=== PATIENT | male | born 1945 | race African-American/Black ===

== ENCOUNTER 2017-09-26 06:49 | Observation (INO) ==
--- NOTE | 2017-09-26 07:08 | Emergency Department Note ---
Disposition Clinical Impression: Syncope and collapse Disposition: Admitted As Inpatient Condition: Fair Referrals: Markell Stoddard MD [Primary Care Provider] - Forms: ED Satisfaction Letter Time of Disposition: 09:36 Syncope HPI - General Chief Complaint: ED Syncope Stated Complaint: near syncope/palpitations Time Seen by Provider: 09/26/17 06:49 Source: patient, EMS Mode of arrival: EMS Limitations: no limitations Nursing Notes Reviewed: Yes Vital Signs Reviewed: Yes - History of Present Illness HPI Narrative: Alert and oriented nontoxic-appearing 71-year-old male presents for evaluation of a syncopal episode just prior to arrival. The patient's significant other states that as he was getting out of bed this morning, his "eyes rolled back in the back of his head and he started to go down". The patient's significant other states that she was standing close enough that she was able to grab him and assist him back to bed. The patient did not actually fall to the ground. The patient does state that prior to this episode, he was experiencing a sensation of his heart racing. He also complains of increasing generalized weakness over the course of the past several days as well as epigastric/right upper quadrant abdominal pain that radiates into his back. The patient's significant other states that he has complained of abdominal pain for the past several days. He denies any aggravating or alleviating factors to this abdominal pain. He denies any associated chest pain, shortness of breath, fever , nausea, vomiting, diarrhea, or constipation. He denies any visual disturbances. He denies any cough, sputum production, or hemoptysis. Pt Subjective Complaint: loss of consciousness Onset (ago): Just STEAM HAND Prodromal Symptoms: heart racing Witnessed: yes - by bystander Context: getting out of bed, standing up Injuries Sustained Associated with Event: none Current Symptoms: none Associated trauma secondary to event: No - Related Data Home Medications Medication Instructions Recorded Confirmed Aspirin 81 mg PO DAILY 01/29/16 05/06/17 Atorvastatin Calcium [Lipitor] 80 mg PO HS 01/29/16 05/06/17 Losartan/HCTZ [Hyzaar 50-12.5 1 tab PO DAILY 01/29/16 05/06/17 Tablet] Omeprazole [PriLOSEC] 20 mg PO DAILY 01/29/16 05/06/17 Sucralfate [Carafate] 1 gm PO TID 01/29/16 05/06/17 diazePAM [Valium] 10 mg PO BID PRN 01/29/16 05/06/17 Donepezil [Aricept] 10 mg PO HS 05/06/17 05/06/17 Tamsulosin [Flomax] 0.4 mg PO DAILY 05/06/17 05/06/17 Allergies Allergy/AdvReac Type Severity Reaction Status Date / Time codeine AdvReac Nausea Verified 09/26/17 09:33 Oxycodone [From Percocet] AdvReac Nausea Verified 09/26/17 09:33 propoxyphene AdvReac Nausea Verified 09/26/17 09:33 [From Darvocet-N] All systems ED: reviewed and negative except as stated. Constitutional: Denies: fever, chills, weakness, weight change Eyes: Denies: eye pain, eye discharge, vision change ENT ED: Denies: ear pain, throat pain, dental pain, hearing loss, epistaxis, congestion, dysphagia Cardiovascular: Reports: as per HPI, syncope. Denies: chest pain, palpitations , dyspnea on exertion, edema Respiratory: Denies: cough, dyspnea, wheezes, hemoptysis, stridor Gastrointestinal: Reports: as per HPI, abdominal pain. Denies: nausea, vomiting , diarrhea, constipation, hematemesis, melena, hematochezia Genitourinary: Denies: urgency, dysuria, frequency, hematuria Musculoskeletal: Denies: back pain, neck pain, arthralgia, myalgia Integumentary: Denies: rash, abrasion, lesions Neurological: Denies: headache, weakness, numbness, paresthesias, confusion, abnormal gait, vertigo Psychiatric: Denies: anxiety, depression, suicidal thoughts, homicidal thoughts , auditory hallucinations, visual hallucinations Endocrine: Denies: fatigue Hematological/Lymphatic: Denies: easy bleeding, easy bruising Allergic/Immunologic: Denies: facial swelling, urticaria Past Medical History - Past Medical History Attestation: Yes The following information was validated with the patient. Source: patient, nursing notes reviewed Medical history: Reports: cancer, CVA, GERD, hyperlipidemia, hypertension, myocardial infarction, other Surgical history: Reports: cholecystectomy Psychiatric history: Reports: anxiety, depression - Social History Smoking Status: Former smoker Smokeless Tobacco Status: No Alcohol use: Reports: none Drug use: Reports: none Physical Exam - General Limitations: no limitations General appearance: alert, in no apparent distress - Head Head exam: atraumatic, normocephalic, normal inspection - Eye Eye exam: Present: normal appearance, PERRL, EOMI. Absent: nystagmus - ENT ENT exam: mucous membranes moist - Neck Neck exam: Present: normal inspection, full ROM, trachea midline - Respiratory Respiratory exam: Present: normal lung sounds bilaterally. Absent: respiratory distress, wheezes, stridor, accessory muscle use, prolonged expiratory phase - Cardiovascular Cardiovascular exam: Present: regular rate, normal rhythm, normal heart sounds - Abdominal Exam Abdominal exam: Present: soft, tenderness, normal bowel sounds. Absent: distention, guarding, rebound, rigidity, tenderness at McBurney's Point, mass, bruit, pulsatile mass Abdominal tenderness: Present: RUQ, epigastrium, moderate - Extremities Exam Extremities exam: Present: normal inspection, full ROM. Absent: tenderness, pedal edema - Neurological Exam Neurological exam: Present: alert, oriented X3 - Psychiatric Psychiatric exam: Present: normal affect, normal mood - Skin Skin exam: Present: warm, dry, intact, normal color. Absent: rash Course Course Narrative: 929: I spoke with Dr. Koehler of the hospitalist service who has accepted the patient for admission under her care. I have discussed this plan with Dr. Perez as well. He has had a [id number] evaluation with patient and agrees with the outlined plan. Vital Signs Temperature 98.1 F 09/26/17 06:49 Pulse Rate 61 09/26/17 06:49 Respiratory Rate 18 09/26/17 06:49 Blood Pressure 112/67 09/26/17 06:49 O2 Sat by Pulse Oximetry 96 09/26/17 06:49 Temperature 98.1 F 09/26/17 06:49 Pulse Rate 61 09/26/17 06:49 Respiratory Rate 18 09/26/17 06:49 Blood Pressure 112/67 09/26/17 06:49 O2 Sat by Pulse Oximetry 96 09/26/17 06:49 Oxygen Delivery Oxygen Delivery Room Air Syncope - Medical Records Medical records reviewed: Yes I reviewed the patient's medical records. - Lab Data Lab results reviewed: Yes I reviewed the patient's lab results. Lab results narrative: Laboratory Last Values WBC 4.2 K/mcL (4.3-11.1) L 09/26/17 07:03 RBC 4.62 M/mcL (4.19-5.50) 09/26/17 07:03 Hgb 13.8 g/dL (12.9-16.9) 09/26/17 07:03 Hct 40.9 % (37.5-50.1) 09/26/17 07:03 MCV 88.5 fL (83.0-100.0) 09/26/17 07:03 MCH 29.9 pg (28.0-33.3) 09/26/17 07:03 MCHC 33.7 g/dL (31.6-35.5) 09/26/17 07:03 RDW 13.3 % (11.5-14.5) 09/26/17 07:03 Plt Count 233 K/mcL (140-400) 09/26/17 07:03 MPV 9.2 fL (9.4-12.4) L 09/26/17 07:03 Immature Gran % 0.2 % (0-4) 09/26/17 07:03 Seg Neutrophils % 56.5 % 09/26/17 07:03 Lymphocytes % 32.4 % 09/26/17 07:03 Monocytes % 8.2 % 09/26/17 07:03 Eosinophils % 2.2 % 09/26/17 07:03 Basophils % 0.5 % 09/26/17 07:03 Neutrophils # 2.4 K/mcL (1.6-8.9) 09/26/17 07:03 Lymphocytes # 1.4 K/mcL (0.6-4.6) 09/26/17 07:03 Monocytes # 0.3 K/mcL (0.0-1.3) 09/26/17 07:03 Eosinophils # 0.1 K/mcL (0.0-0.6) 09/26/17 07:03 Basophils # 0.0 K/mcL (0.0-0.2) 09/26/17 07:03 PT 12.8 Seconds (9.4-12.1) H 09/26/17 07:03 INR 1.2 09/26/17 07:03 APTT 27.2 Seconds (26.0-36.0) 09/26/17 07:03 Sodium 135 mEq/L (136-145) L 09/26/17 07:03 Potassium 3.7 mEq/L (3.5-5.1) 09/26/17 07:03 Chloride 99 mEq/L (98-107) 09/26/17 07:03 Carbon Dioxide 30 mEq/L (23-29) H 09/26/17 07:03 BUN 9 mg/dL (8-23) 09/26/17 07:03 Creatinine 0.94 mg/dL (0.70-1.30) 09/26/17 07:03 Est GFR ( Amer) > 60 (> 60) 09/26/17 07:03 Est GFR (Non-Af Amer) > 60 (> 60) 09/26/17 07:03 BUN/Creatinine Ratio 10 (6-26) 09/26/17 07:03 Glucose 143 mg/dL (70-105) H 09/26/17 07:03 Calculated Osmolality 281 (280-300) 09/26/17 07:03 Calcium 9.2 mg/dL (8.6-10.3) 09/26/17 07:03 Total Bilirubin 1.1 mg/dL (0.3-1.0) H 09/26/17 07:03 AST 21 Units/L (13-39) 09/26/17 07:03 ALT 15 Units/L (7-52) 09/26/17 07:03 Alkaline Phosphatase 54 Units/L (34-104) 09/26/17 07:03 Troponin I < 0.03 ng/mL (< 0.04) 09/26/17 07:03 Serum Total Protein 6.7 g/dL (6.4-8.9) 09/26/17 07:03 Albumin 3.8 g/dL (3.5-5.7) 09/26/17 07:03 Globulin 2.9 g/dL (2.4-3.5) 09/26/17 07:03 Albumin/Globulin Ratio 1.3 (1.1-2.2) 09/26/17 07:03 Amylase 90 Units/L (29-103) 09/26/17 07:03 Lipase 12 Units/L (11-82) 09/26/17 07:03 Urine Color Yellow (Yellow) 09/26/17 08:36 Urine Clarity Clear (Clear) 09/26/17 08:36 Urine pH 7.0 pH Units (5.0-8.0) 09/26/17 08:36 Ur Specific [place] > 1.030 (1.010-1.025) H 09/26/17 08:36 Urine Protein Negative mg/dL (Neg-Trace) 09/26/17 08:36 Urine Glucose (UA) Normal mg/dL (Normal) 09/26/17 08:36 Urine Ketones Negative mg/dL (Negative) 09/26/17 08:36 Urine Blood Negative (Negative) 09/26/17 08:36 Urine Nitrite Negative (Negative) 09/26/17 08:36 Urine Bilirubin Negative (Negative) 09/26/17 08:36 Urine Urobilinogen Normal mg/dL (Normal) 09/26/17 08:36 Ur Leukocyte Esterase Negative (Negative) 09/26/17 08:36 Ur Culture Indicated? NO (NO) 09/26/17 08:36 Result diagrams: 09/26/17 07:03 09/26/17 07:03 Lab Results 09/26/17 09/26/17 09/26/17 Range/Units 07:03 07:03 07:03 WBC 4.2 L (4.3-11.1) K/mcL RBC 4.62 (4.19-5.50) M/mcL Hgb 13.8 (12.9-16.9) g/dL Hct 40.9 (37.5-50.1) % MCV 88.5 (83.0-100.0) fL MCH 29.9 (28.0-33.3) pg MCHC 33.7 (31.6-35.5) g/dL RDW 13.3 (11.5-14.5) % Plt Count 233 (140-400) K/mcL MPV 9.2 L (9.4-12.4) fL Immature Gran % 0.2 (0-4) % Seg Neutrophils % 56.5 % Lymphocytes % 32.4 % Monocytes % 8.2 % Eosinophils % 2.2 % Basophils % 0.5 % Neutrophils # 2.4 (1.6-8.9) K/mcL Lymphocytes # 1.4 (0.6-4.6) K/mcL Monocytes # 0.3 (0.0-1.3) K/mcL Eosinophils # 0.1 (0.0-0.6) K/mcL Basophils # 0.0 (0.0-0.2) K/mcL PT 12.8 H (9.4-12.1) Seconds INR 1.2 APTT 27.2 (26.0-36.0) Seconds Sodium (136-145) mEq/L Potassium (3.5-5.1) mEq/L Chloride (98-107) mEq/L Carbon Dioxide (23-29) mEq/L BUN (8-23) mg/dL Creatinine (0.70-1.30) mg/dL Est GFR ( Amer) (> 60) Est GFR (Non-Af Amer) (> 60) BUN/Creatinine Ratio (6-26) Glucose (70-105) mg/dL Calculated Osmolality (280-300) Calcium (8.6-10.3) mg/dL Total Bilirubin (0.3-1.0) mg/dL AST (13-39) Units/L ALT (7-52) Units/L Alkaline Phosphatase (34-104) Units/L Troponin I < 0.03 (< 0.04) ng/mL Serum Total Protein (6.4-8.9) g/dL Albumin (3.5-5.7) g/dL Globulin (2.4-3.5) g/dL Albumin/Globulin Ratio (1.1-2.2) Amylase (29-103) Units/L Lipase (11-82) Units/L Urine Color (Yellow) Urine Clarity (Clear) Urine pH (5.0-8.0) pH Units Ur Specific [place] (1.010-1.025) Urine Protein (Neg-Trace) mg/dL Urine Glucose (UA) (Normal) mg/dL Urine Ketones (Negative) mg/dL Urine Blood (Negative) Urine Nitrite (Negative) Urine Bilirubin (Negative) Urine Urobilinogen (Normal) mg/dL Ur Leukocyte Esterase (Negative) Ur Culture Indicated? (NO) 09/26/17 09/26/17 Range/Units 07:03 08:36 WBC (4.3-11.1) K/mcL RBC (4.19-5.50) M/mcL Hgb (12.9-16.9) g/dL Hct (37.5-50.1) % MCV (83.0-100.0) fL MCH (28.0-33.3) pg MCHC (31.6-35.5) g/dL RDW (11.5-14.5) % Plt Count (140-400) K/mcL MPV (9.4-12.4) fL Immature Gran % (0-4) % Seg Neutrophils % % Lymphocytes % % Monocytes % % Eosinophils % % Basophils % % Neutrophils # (1.6-8.9) K/mcL Lymphocytes # (0.6-4.6) K/mcL Monocytes # (0.0-1.3) K/mcL Eosinophils # (0.0-0.6) K/mcL Basophils # (0.0-0.2) K/mcL PT (9.4-12.1) Seconds INR APTT (26.0-36.0) Seconds Sodium 135 L (136-145) mEq/L Potassium 3.7 (3.5-5.1) mEq/L Chloride 99 (98-107) mEq/L Carbon Dioxide 30 H (23-29) mEq/L BUN 9 (8-23) mg/dL Creatinine 0.94 (0.70-1.30) mg/dL Est GFR ( Amer) > 60 (> 60) Est GFR (Non-Af Amer) > 60 (> 60) BUN/Creatinine Ratio 10 (6-26) Glucose 143 H (70-105) mg/dL Calculated Osmolality 281 (280-300) Calcium 9.2 (8.6-10.3) mg/dL Total Bilirubin 1.1 H (0.3-1.0) mg/dL AST 21 (13-39) Units/L ALT 15 (7-52) Units/L Alkaline Phosphatase 54 (34-104) Units/L Troponin I (< 0.04) ng/mL Serum Total Protein 6.7 (6.4-8.9) g/dL Albumin 3.8 (3.5-5.7) g/dL Globulin 2.9 (2.4-3.5) g/dL Albumin/Globulin Ratio 1.3 (1.1-2.2) Amylase 90 (29-103) Units/L Lipase 12 (11-82) Units/L Urine Color Yellow (Yellow) Urine Clarity Clear (Clear) Urine pH 7.0 (5.0-8.0) pH Units Ur Specific [place] > 1.030 H (1.010-1.025) Urine Protein Negative (Neg-Trace) mg/dL Urine Glucose (UA) Normal (Normal) mg/dL Urine Ketones Negative (Negative) mg/dL Urine Blood Negative (Negative) Urine Nitrite Negative (Negative) Urine Bilirubin Negative (Negative) Urine Urobilinogen Normal (Normal) mg/dL Ur Leukocyte Esterase Negative (Negative) Ur Culture Indicated? NO (NO) - Radiology Data Radiology results reviewed: Yes I reviewed the patient's radiology results. Chest X-Ray 09/26/17 06:51 IMPRESSION: No radiographic evidence of acute postvoid process. Hyperinflated lungs suggestive of COPD. D/ / Ephraim Kruse MD / Ephraim Kruse MD Interpreting Provider: Ephraim Kruse MD Abdomen/Pelvis CTA 09/26/17 07:28 IMPRESSION: 1. Mild coronary and mild -moderate aortic atherosclerosis. No aortic aneurysm or dissection. 2. No acute pulmonary emboli. 3. 5 mm right upper lobe solid pulmonary nodules stable compared to the most recent exam and 02/11/2016 exam demonstrating over 1 year stability (see recommendations). 4. No acute pulmonary process. No acute abdominal/ pelvic process. . 5. Nonspecific mild proximal gastric wall thickening which could relate to nondistention versus possible gastritis. 6. Prostatomegaly. RECOMMENDATIONS: Fleischner Society guidelines for follow-up and management of incidentally detected pulmonary nodules: Single Solid Nodule: Nodule size less than 6 mm In a low-risk patient, no routine follow-up. In a high-risk patient, optional CT at 12 months. Nodule size equals 6-8 mm In a low-risk patient, CT at 6-12 months, then consider CT at 18-24 months. In a high-risk patient, CT at 6-12 months, then CT at 18-24 months. Nodule size greater than 8 mm In a low-risk patient, consider CT, PET/CT, or tissue sampling at 3 months. In a high-risk patient, consider CT, PET/CT, or tissue sampling at 3 months. Multiple Solid Nodules: Nodule size less than 6 mm In a low-risk patient, no routine follow-up. In a high-risk patient, optional CT at 12 months. Nodule size equals 6-8 mm In a low-risk patient, CT at 3-6 months, then consider CT at 18-24 months. In a high-risk patient, CT at 3-6 months, then CT at 18-24 months. Nodule size greater than 8 mm In a low-risk patient, CT at 3-6 months, then consider CT at 18-24 months. In a high-risk patient, CT at 3-6 months, then CT at 18-24 months. - Low risk patients include individuals with minimal or absent history of smoking and other known risk factors. - High risk patients include individuals with a history or smoking or known risk factors. Radiology 2017 http://pubs.rsna.org/doi/full/10.1148/radiol.[email or web address] D/ / Dillon Nam MD / Dillon Nam MD Interpreting Provider: Dillon Nam MD Chest CTA 09/26/17 07:28 IMPRESSION: 1. Mild coronary and mild -moderate aortic atherosclerosis. No aortic aneurysm or dissection. 2. No acute pulmonary emboli. 3. 5 mm right upper lobe solid pulmonary nodules stable compared to the most recent exam and 02/11/2016 exam demonstrating over 1 year stability (see recommendations). 4. No acute pulmonary process. No acute abdominal/ pelvic process. . 5. Nonspecific mild proximal gastric wall thickening which could relate to nondistention versus possible gastritis. 6. Prostatomegaly. RECOMMENDATIONS: Fleischner Society guidelines for follow-up and management of incidentally detected pulmonary nodules: Single Solid Nodule: Nodule size less than 6 mm In a low-risk patient, no routine follow-up. In a high-risk patient, optional CT at 12 months. Nodule size equals 6-8 mm In a low-risk patient, CT at 6-12 months, then consider CT at 18-24 months. In a high-risk patient, CT at 6-12 months, then CT at 18-24 months. Nodule size greater than 8 mm In a low-risk patient, consider CT, PET/CT, or tissue sampling at 3 months. In a high-risk patient, consider CT, PET/CT, or tissue sampling at 3 months. Multiple Solid Nodules: Nodule size less than 6 mm In a low-risk patient, no routine follow-up. In a high-risk patient, optional CT at 12 months. Nodule size equals 6-8 mm In a low-risk patient, CT at 3-6 months, then consider CT at 18-24 months. In a high-risk patient, CT at 3-6 months, then CT at 18-24 months. Nodule size greater than 8 mm In a low-risk patient, CT at 3-6 months, then consider CT at 18-24 months. In a high-risk patient, CT at 3-6 months, then CT at 18-24 months. - Low risk patients include individuals with minimal or absent history of smoking and other known risk factors. - High risk patients include individuals with a history or smoking or known risk factors. Radiology 2017 http://pubs.rsna.org/doi/full/10.1148/radiol.[email or web address] D/ / Dillon Nam MD / Dillon Nam MD Interpreting Provider: Dillon Nam MD Head CT 09/26/17 07:28 IMPRESSION: No acute intracranial abnormality. Small old infarctions in the bilateral frontal lobes, right more than left, stable. Mild parenchymal volume loss. Mild chronic microvascular disease. D/ / Sohan Okeefe MD / Sohan Okeefe MD Interpreting Provider: Sohan Okeefe MD - EKG Data EKG attestation: Yes I reviewed and interpreted this EKG. EKG results narrative: EKG reviewed by Dr. Perez as well. EKG shows a sinus rhythm at a rate of 63 bpm. NC interval 169, QRS duration 90, QT/QTc interval 424/431. No ectopy noted. No significant changes when compared with an EKG dated from 04/13/17. Attestation Statement - Attestation Attestation: For this encounter, I have reviewed the [employer] or PA documentation, treatment plan, and medical decision making; and I have had face to face time with this patient. Patient resting couple of times by exam. I have reviewed the results of his lab tests and ECG. Patient seen in conjunction with Jose Diallo
[2017-09-26 07:26] LABS: Albumin 3.8 g/dL (3.5-5.7); Amylase 90 Units/L (29-103); Bilirubin,Total 1.1 mg/dL (0.3-1.0); Calcium 9.2 mg/dL (8.6-10.3); Carbon Dioxide 30 mEq/L (23-29); Chloride 99 mEq/L (98-107); Potassium 3.7 mEq/L (3.5-5.1); Sodium 135 mEq/L (136-145)
[2017-09-26 07:30] LABS: INR 1.2; Prothrombin Time 12.8 Seconds (9.4-12.1)
[2017-09-26 07:32] LABS: Alanine Aminotransferase 15 Units/L (7-52); Albumin/Globulin Ratio 1.3 (1.1-2.2); Alkaline Phosphatase 54 Units/L (34-104); Aspartate Amino Transferase 21 Units/L (13-39); BUN/Creatinine Ratio 10 (6-26); Blood Urea Nitrogen 9 mg/dL (8-23); Globulin 2.9 g/dL (2.4-3.5); Glucose 143 mg/dL (70-105); Lipase 12 Units/L (11-82); Osmolality,Calculated 281 (280-300); Total Protein 6.7 g/dL (6.4-8.9); eGFR For African Americans > 60 (> 60); eGFR For Non-African Americans > 60 (> 60)
[2017-09-26 07:33] LABS: Activated Partial Thrombo Time 27.2 Seconds (26.0-36.0)
[2017-09-26 07:51] LABS: Basophils % 0.5 %; Eosinophils # 0.1 K/mcL (0.0-0.6); Eosinophils % 2.2 %; Hematocrit 40.9 % (37.5-50.1); Hemoglobin 13.8 g/dL (12.9-16.9); Immature Granulocytes % 0.2 % (0-4); Lymphocytes # 1.4 K/mcL (0.6-4.6); Lymphocytes % 32.4 %; Mean Corpuscular HGB Conc 33.7 g/dL (31.6-35.5); Mean Corpuscular Hemoglobin 29.9 pg (28.0-33.3); Mean Corpuscular Volume 88.5 fL (83.0-100.0); Mean Platelet Volume 9.2 fL (9.4-12.4); Monocytes # 0.3 K/mcL (0.0-1.3); Monocytes % 8.2 %; Neutrophils # 2.4 K/mcL (1.6-8.9); Platelet Count 233 K/mcL (140-400); Red Blood Count 4.62 M/mcL (4.19-5.50); Red Cell Distribution Width 13.3 % (11.5-14.5); Segmented Neutrophils % 56.5 %
[2017-09-26 08:52] LABS: Bilirubin,Urine Negative (Negative); Blood,Urine Negative (Negative); Clarity,Urine Clear (Clear); Color,Urine Yellow (Yellow); Glucose,Urine (UA) Normal (Normal); Ketones,Urine Negative (Negative); Leukocyte Esterase,Urine Negative (Negative); Nitrite,Urine Negative (Negative); Protein,Urine Negative (Neg-Trace); Specific Gravity,Urine > 1.030 (1.010-1.025); Urobilinogen,Urine Normal (Normal)
[2017-09-26] MEDS ORDERED: Ondansetron 4 MG/2 ML VIAL IVP PRN (10:25)
[2017-09-26] MEDS ORDERED: Naloxone 0.4 MG/ML INJ IVP PRN (10:25)
[2017-09-26] MEDS ORDERED: *HR* Morphine 2 MG/ML SYRINGE IVP PRN (10:25)
[2017-09-26] MEDS: Losartan/HCTZ 50-12.5 TABLET PO SCH (11:36)
--- NOTE | 2017-09-26 11:44 | Internal Med History&Physical ---
Date of Encounter: 09/26/17 Time of Encounter: 11:44 Assessment and Plan (1) Syncope Current visit: Yes Status: Acute suspect vasovagal, r/o cardiogenic check orthostatics, obtain ECHO and Carotid USS. Cycle troponins Head CT unremarkable, patient is ambulatory and has no neurologic symptoms, no indication for MRI at this time Keep on tele Qualifiers: Syncope type: vasovagal syncope Qualified Code(s): R55 - Syncope and collapse (2) CAD (coronary artery disease) Current visit: Yes Status: Chronic no chest pain, continue home meds Qualifiers: Coronary Disease-Associated Artery/Lesion type: [place] artery T[place] vs. transplanted heart: [place] heart Associated angina: without angina Qualified Code(s): I25.10 - Atherosclerotic heart disease of [place] coronary artery without angina pectoris (3) HTN (hypertension) Current visit: Yes Status: Chronic Continue home meds Qualifiers: Hypertension type: essential hypertension Qualified Code(s): I10 - Essential (primary) hypertension (4) HLD (hyperlipidemia) Current visit: Yes Status: Chronic continue home meds Qualifiers: Hyperlipidemia type: unspecified Qualified Code(s): E78.5 - Hyperlipidemia , unspecified (5) COPD (chronic obstructive pulmonary disease) Current visit: Yes Status: Chronic No acute exacerbation. Duonebs prn Qualifiers: COPD type: unspecified COPD Qualified Code(s): J44.9 - Chronic obstructive pulmonary disease, unspecified Internal Medicine - H&P: HPI Chief complaint: syncope Admitted From: Home Plans for Post Hospital Care: Home History of present illness: Mr. Brenner is a 71 year old male with PMH of HTN, HLD, COPD, CAD who presented to the ER in company of his with complains of syncope. He had just attempted to use the bathroom (hs of constipation with strain) when he passed out, his was able to catch him and lay him flat, he woke up almost immediately. He had some preceding palpitations, abdominal pain, and diaphoresis , all of these have resolved. He denied chest pain or dizziness prior to the event. He denies any other symptoms, no cough, chest pain, orthopnea, dyspnea, or leg swelling. He has chronic constipation, other ROS is not contributory. CBC, Chem, Initial troponin INR , UA and head imaging unremarkable. CTA of the chest, abdomen and pelvis are unremarkable, save for gastritis. EKG is at NSR. No ischemic changes. Past Med Surg Social Fam HX - Past Medical History Medical history: cancer, CVA, GERD, hyperlipidemia, hypertension, myocardial infarction, other Psychiatric history: anxiety, depression - Past Surgical History Surgical History: cholecystectomy - Social History Smoking Status: Former smoker Smokeless Tobacco Status: No Alcohol use: none Drug use: none - Family History Mother Hx Family Cardiac Disorders: Yes (Cardiac disease, [place]) Internal Medicine - H&P: Meds Aspirin 81 mg PO DAILY 01/29/16 [History] Atorvastatin Calcium [Lipitor] 80 mg PO HS 01/29/16 [History] Losartan/HCTZ [Hyzaar 50-12.5 Tablet] 1 tab PO DAILY 01/29/16 [History] Omeprazole [PriLOSEC] 20 mg PO DAILY 01/29/16 [History] Donepezil [Aricept] 10 mg PO HS 05/06/17 [History] Tamsulosin [Flomax] 0.4 mg PO DAILY 05/06/17 [History] LORazepam 09/26/17 [History] Zoloft 09/26/17 [History] 3 Allergy/AdvReac Type Severity Reaction Status Date / Time codeine AdvReac Nausea Verified 09/26/17 09:33 Oxycodone [From Percocet] AdvReac Nausea Verified 09/26/17 09:33 propoxyphene AdvReac Nausea Verified 09/26/17 09:33 [From Darvocet-N] All Systems PM: A 10-system review of systems was performed and is negative for pertinent findings except as documented above in the HPI. - Constitutional Constitutional: no chills, no fever(s), no night sweats - EENT Eyes: no change in vision, no discharge, no pain, no photophobia Ears: no ear discharge, no ear pain, no tinnitus Nose, mouth and throat: no dysphagia, no nasal discharge, no neck pain, no sore throat - Cardiovascular Cardiovascular ROS IM: as per HPI - Respiratory Respiratory: no cough, no dyspnea, no wheezing, no excessive phlegm production - Gastrointestinal Gastrointestinal: no abdominal pain, no diarrhea, no hematemesis, no hematochezia, no melena, no nausea, no vomiting - Musculoskeletal Musculoskeletal ROS IM: no numbness, no tingling - Integumentary Integumentary IM: no rash, no unusual bruising - Neurological Neurological ROS: as per HPI - Hematologic/Lymphatic Hematologic/Lymphatic: no easy bruising - Constitutional Vitals: Temp Pulse Resp BP Pulse Ox 97.6 F 54 16 135/67 97 09/26/17 11:18 09/26/17 11:18 09/26/17 11:18 09/26/17 11:18 09/26/17 11:18 General appearance: Present: A&O X 3, pleasant, no acute distress - Head Head exam: Present: atraumatic, normocephalic - Eye Eye exam: Present: PERRL, conjuntiva pink, sclera anicteric Pupils: Present: PERRL - Neck Neck exam general surgery: Present: supple, trachea midline. Absent: lymphadenopathy - Respiratory Respiratory exam: Present: CTAB. Absent: accessory muscle use, rales, rhonchi, wheezes - Cardiovascular Cardiovascular exam: Present: RRR, +S1, +S2. Absent: diastolic murmur, gallop, rubs, systolic murmur - GI/Abdominal GI/Abdominal exam: Present: normal bowel sounds, soft, no peritoneal signs. Absent: distended, tenderness - Extremities Exam Extremities exam: Present: warm, radial pulses palpable and symmetrical. Absent : calf tenderness, cyanotic, pedal edema - Neurological Exam Neurological exam: Present: alert, CN II-XII intact, oriented X3, no focal deficits. Absent: pronater drift, facial droop, speech deficit - Skin Skin exam: Present: dry, intact Internal Med - H&P Results - Labs CBC & Chem 7: 09/26/17 07:03 09/26/17 07:03 - EKG Data -: EKG Interpreted by Myself EKG shows normal: sinus rhythm - EKG Data Prior EKG available for review: yes When compared to previous EKG: there is no significant change
[2017-09-26] MEDS ORDERED: Sennosides/Docusate Sodium TABLET PO PRN (13:57)
[2017-09-26] MEDS: Acetaminophen 325 MG TABLET PO PRN (22:09)
[2017-09-26] MEDS ORDERED: *HR* LORazepam 0.5 MG TABLET PO PRN (22:18)
[2017-09-27 04:59] LABS: Basophils % 0.4 %; Eosinophils # 0.1 K/mcL (0.0-0.6); Hemoglobin 13.9 g/dL (12.9-16.9); Immature Granulocytes % 0.4 % (0-4); Lymphocytes # 1.6 K/mcL (0.6-4.6); Lymphocytes % 30.2 %; Mean Corpuscular HGB Conc 33.9 g/dL (31.6-35.5); Mean Corpuscular Hemoglobin 29.7 pg (28.0-33.3); Mean Corpuscular Volume 87.6 fL (83.0-100.0); Mean Platelet Volume 9.2 fL (9.4-12.4); Monocytes # 0.4 K/mcL (0.0-1.3); Monocytes % 8.2 %; Neutrophils # 3.2 K/mcL (1.6-8.9); Platelet Count 221 K/mcL (140-400); Red Blood Count 4.68 M/mcL (4.19-5.50); Red Cell Distribution Width 13.4 % (11.5-14.5); Segmented Neutrophils % 58.8 %
[2017-09-27 05:36] LABS: BUN/Creatinine Ratio 11 (6-26); Blood Urea Nitrogen 9 mg/dL (8-23); Calcium 9.2 mg/dL (8.6-10.3); Carbon Dioxide 28 mEq/L (23-29); Chloride 101 mEq/L (98-107); Glucose 102 mg/dL (70-105); Osmolality,Calculated 283 (280-300); Potassium 3.4 mEq/L (3.5-5.1); Sodium 137 mEq/L (136-145); eGFR For African Americans > 60 (> 60); eGFR For Non-African Americans > 60 (> 60)
[2017-09-27] MEDS: Acetaminophen 325 MG TABLET PO PRN (08:22)
[2017-09-27] MEDS ORDERED: Aspirin 81 MG TAB.CHEW PO SCH (09:00)
[2017-09-27] MEDS: Losartan/HCTZ 50-12.5 TABLET PO SCH (09:40)
[2017-09-27] MEDS ORDERED: Lactulose Oral Soln 20 GM/30 ML UDC PO ONE (10:17)
--- NOTE | 2017-09-27 10:54 | Gastroenterology Consult Note ---
Date of Encounter: 10/06/17 Time of Encounter: 10:54 - Time Spent With Patient Total time spent is greater than 50% in coordination of care (as documented) at patient's floor/unit and/or counseling patient: GI History of Present Illness - Data of Consult Requesting Physician: Alyssa Rawls CNP - Consult Narrative History of present illness: Mr. Brenner is a 71 year old male who is admitted with epigastric and RUQ pain along with nausea and heartburn. He is jaundiced and noted his urine turning dark for last few days. No melena, hematochezia. He has a history of heavy alcohol abuse and unfortunately appears not motivated to stop alcohol intake. Mild alcoholic hepatitis. Morbid obesity Hx of noncompliance Past Med Surg Social Fam HX - Past Medical History Medical history: cancer, CVA, GERD, hyperlipidemia, hypertension, myocardial infarction, other Psychiatric history: anxiety, depression - Past Surgical History Surgical History: cholecystectomy - Social History Smoking Status: Former smoker Smokeless Tobacco Status: No Alcohol use: none Drug use: none - Family History Mother Living Status: Age at : 75 Cause of : [place] Hx Family Cardiac Disorders: Yes (Cardiac disease, [place]) - Constitutional Vitals: Temp Pulse Resp BP Pulse Ox 98.3 F 59 16 160/75 99 09/27/17 07:04 09/27/17 07:04 09/27/17 07:04 09/27/17 07:04 09/27/17 07:04 Results - Labs CBC & Chem 7: 09/27/17 04:24 09/27/17 04:24 Labs: Last Result Calcium 9.2 mg/dL (8.6-10.3) 09/27/17 04:24 Troponin I < 0.03 ng/mL (< 0.04) 09/26/17 19:04 Entire Visit Hgb 13.9 g/dL (12.9-16.9) 09/27/17 04:24 Hct 41.0 % (37.5-50.1) 09/27/17 04:24 PT 12.8 Seconds (9.4-12.1) H 09/26/17 07:03 Total Bilirubin 1.1 mg/dL (0.3-1.0) H 09/26/17 07:03 AST 21 Units/L (13-39) 09/26/17 07:03 ALT 15 Units/L (7-52) 09/26/17 07:03 Amylase 90 Units/L (29-103) 09/26/17 07:03 Lipase 12 Units/L (11-82) 09/26/17 07:03 - ABG ABG results: PT/INR, D-dimer PT 12.8 Seconds (9.4-12.1) H 09/26/17 07:03 Consult Discharge Plan - Plan Instructions: Chest Pain (DC), Syncope (DC) Referrals: Markell Stoddard MD [Primary Care Provider] - (We have requested a hospital follow up appt via web. The office will call you to schedule appt. )
[2017-09-27 11:40] VITALS: BP 134/71
--- NOTE | 2017-09-27 16:07 | Discharge Summary ---
Date of Encounter: 09/27/17 Time of Encounter: 16:04 - Discharge Diagnosis (1) Syncope and collapse Priority: Primary Status: Acute Comments: The patient resides at home with his . He has a history of dementia, constipation poor appetite chronic back pain hyperlipidemia hypertension CAD COPD. According to his last night about 2 AM he was getting up to go to the bathroom and started to slide off the side of bed, his was with him and stated he fell back onto the bed and his eyes rolled up into the back of his head and he was out for a few seconds. She said when he came to himself he was dizzy and felt a little bit out of it so she called the squad and he was brought to the emergency room for evaluation. Echocardiogram was completed, bilateral carotids report was reviewed and stated some minimal plaquing bilaterally, CT of the head with nothing acute, CTA of the chest abdomen and pelvis nothing acute except for some gastritis. The patient and his were frustrated today and were going to leave AGAINST MEDICAL ADVICE but agreed to stay until this testing was completed. He has returned to his baseline mental status, no further episodes of syncope Cardiac monitoring with no acute events Recommend he follow up with cardiology as an outpatient (2) Weight loss, unintentional Priority: Secondary Status: Acute Comments: Patient is cachectic in appearance. His states he eats very poorly. She also reported he had a colonoscopy several months ago that was not able to be completed secondary to one area of the colon was blocked. She said he also has issues with constipation. Asked for a GI consult and saw the patient and spent some time discussing treatment options. He recommended a colonoscopy tomorrow. The patient and his declined to do that at this time. The doctor urged outpatient follow-up for repeat colonoscopy to evaluate the area of the colon that was not assessed. The patient is to see him in the office this week and he is personally going to make the appointment for them. Worrisome for malignancy in this elderly gentleman (3) Constipation Priority: Secondary Status: Acute Comments: to f/u with GI Qualifiers: Constipation type: unspecified constipation type Qualified Code(s): K59.00 - Constipation, unspecified (4) CAD (coronary artery disease) Priority: Secondary Status: Chronic Comments: No chest pain, troponins negative, continue medications Qualifiers: Coronary Disease-Associated Artery/Lesion type: [place] artery [place] vs. transplanted heart: [place] heart Associated angina: without angina Qualified Code(s): I25.10 - Atherosclerotic heart disease of [place] coronary artery without angina pectoris (5) HTN (hypertension) Priority: Secondary Status: Chronic Comments: Pressure stable continue home medications Qualifiers: Hypertension type: essential hypertension Qualified Code(s): I10 - Essential (primary) hypertension (6) Hypokalemia Priority: Primary Status: Acute Comments: Replaced - Discharge Medications Home Medications: Aspirin 81 mg PO DAILY 01/29/16 [History] Atorvastatin Calcium [Lipitor] 80 mg PO HS 01/29/16 [History] Losartan/HCTZ [Hyzaar 50-12.5 Tablet] 1 tab PO DAILY 01/29/16 [History] Omeprazole [PriLOSEC] 20 mg PO DAILY 01/29/16 [History] Donepezil [Aricept] 10 mg PO HS 05/06/17 [History] Tamsulosin [Flomax] 0.4 mg PO DAILY 05/06/17 [History] Zoloft 09/26/17 [History] LORazepam [Ativan] 0.5 mg PO QID PRN 09/27/17 [History] Allergies/Adverse Reactions: 3 Allergy/AdvReac Type Severity Reaction Status Date / Time codeine AdvReac Nausea Verified 09/26/17 09:33 Oxycodone [From Percocet] AdvReac Nausea Verified 09/26/17 09:33 propoxyphene AdvReac Nausea Verified 09/26/17 09:33 [From Darvocet-N] Procedures/tests Complete & Pending: Procedures Performed prior 72 hours Category Date Time Status EV carotid duplex imaging BI Routine Y 09/26/17 10:29 Completed EV echocardiogram Routine Y 09/26/17 10:29 Completed Date of admission: 09/26/17 09:50 Primary care physician: Markell Stoddard MD Consults: 09/27/17 10:39 Consult to Gastroenterology [CONS] Routine Consulting Provider: Gastroenterology [facility] Reason for Consult: weight loss and constipation Time Notified: 10:40 Call Completed: Yes Discharging clinician: Annette Stover Anticipated date of discharge: 09/27/17 - Patient Status Disposition: Home, Self-Care Functional capacity at discharge: uses cane/walker Overall status at discharge: patient is progressing back to baseline - Discharge Instructions Instructions: Chest Pain (DC), Syncope (DC) Follow Up With: Markell Stoddard MD [Primary Care Provider] - (We have requested a hospital follow up appt via web. The office will call you to schedule appt. ) - Diet and Activity Activity: increase activity as tolerated Diet: advance to your usual diet Interval History: Patient is at his baseline. He stated he does have some dementia. He has had no further syncopal episodes. He denies any chest pain or shortness of breath. He gets agitated easily and his who is at the bedside and helps that along at times. He states he is constipated and has some abdominal discomfort from that. Hospital course: Please see assessment and plan - Time Spent with Patient Total time spent providing and/or coordinating discharge services: Less than 30 minutes - Constitutional Vitals: Temp Pulse Resp BP Pulse Ox 98.2 F 55 16 134/71 96 09/27/17 11:39 09/27/17 11:39 09/27/17 11:39 09/27/17 11:39 09/27/17 11:39 General appearance: Present: cachectic, A&O X 2, no acute distress, underweight Exam: Mood and attitude swings during assessment uncooperative at times - Head Head exam: Present: atraumatic, normocephalic - Eye Eye exam: Present: conjuntiva pink, sclera anicteric - Neck Neck exam general surgery: Present: supple, trachea midline. Absent: lymphadenopathy, nuchal rigidity - Respiratory Respiratory exam: Present: CTAB. Absent: accessory muscle use, rales, rhonchi, wheezes - Cardiovascular Cardiovascular exam: Present: RRR, +S1, +S2. Absent: diastolic murmur, gallop, rubs, systolic murmur - GI/Abdominal GI/Abdominal exam: Present: normal bowel sounds, soft, no peritoneal signs. Absent: distended, tenderness - Extremities Exam Extremities exam: Present: warm, radial pulses palpable and symmetrical. Absent : calf tenderness, cyanotic, pedal edema - Neurological Exam Neurological exam: Present: alert, normal gait, no focal deficits, strengths equal and symetr throughout. Absent: pronater drift, facial droop, speech deficit - Skin Skin exam: Present: dry, intact, warm
--- NOTE | 2017-09-28 09:10 | Electrocardiograph Report ---
[facility] Test Date: 2017-09-26 Pat Name: Rc Brenner Department: 104 Room: 3B14 Gender: M Director Of Medical Staff Services: EKP : 1945 Requested By: Jose Diallo Order Number: [id number] Reading MD: Ta Veronica MD Measurements Intervals [place] Rate: 63 P: 77 WI: 169 QRS: 63 QRSD: 90 T: 62 QT: 424 QTc: 431 Interpretive Statements SINUS RHYTHM NONSPECIFIC ST ELEVATION Electronically Signed On 09-28-2017 9:09:13 EST by Ta Veronica MD
== END 2017-09-27 16:20 | disposition home or self-care (01) ==
LOC: 3BNU 06:49 → EMEROO 06:49 → 3BNU 10:08
PROVIDERS: ADMIT Internal Medicine; ATTEND Registered Nurse

== ENCOUNTER 2021-09-19 08:59 | Observation (INO) ==
[2021-09-19] MEDS ORDERED: Isovue-370 500 ML BOTTLE IVP ONE (09:08)
[2021-09-19 09:29] LABS: Hematocrit 41.8 % (37.5-50.1); Hemoglobin 13.9 g/dL (12.9-16.9); Mean Corpuscular HGB Conc 33.3 g/dL (31.6-35.5); Mean Corpuscular Hemoglobin 30.5 pg (28.0-33.3); Mean Corpuscular Volume 91.9 fL (83.0-100.0); Mean Platelet Volume 9.4 fL (9.4-12.4); Platelet Count 234 K/mcL (140-400); Red Blood Count 4.55 M/mcL (4.19-5.50); Red Cell Distribution Width 13.6 % (11.5-14.5); White Blood Count 4.5 K/mcL (4.3-11.1)
[2021-09-19 09:44] LABS: INR 1.2
[2021-09-19 09:48] LABS: BUN/Creatinine Ratio 9 (6-26); Blood Urea Nitrogen 11 mg/dL (8-23); Calcium 9.6 mg/dL (8.6-10.3); Carbon Dioxide 28 mEq/L (23-29); Chloride 103 mEq/L (98-107); Glucose 97 mg/dL (70-105); Osmolality,Calculated 287 (280-300); Potassium 3.7 mEq/L (3.5-5.1); Sodium 139 mEq/L (136-145); Troponin I < 0.03 ng/mL (< 0.04); eGFR For African Americans > 60 (> 60); eGFR For Non-African Americans > 60 (> 60)
[2021-09-19] MEDS ORDERED: Melatonin 3 MG TABLET PO PRN (10:28)
[2021-09-19] MEDS ORDERED: Naloxone 0.4 MG/ML INJ IVP PRN (10:28)
[2021-09-19] MEDS ORDERED: Gadolinium Contrast Agent (WT Based) IV PRN (10:30)
[2021-09-19] MEDS ORDERED: Perflutren Lipid Microsphere 1.3 ML in 0.9 % Sodium Chloride 8.7 ML IVP PRN (10:39)
[2021-09-19] MEDS ORDERED: Ringers Solution, Lactated 1,000 ML IVC SCH (10:45)
[2021-09-19] MEDS ORDERED: Aspirin 81 MG TAB.CHEW PO SCH (10:45)
[2021-09-19 11:21] LABS: Bilirubin,Urine Negative (Negative); Blood,Urine Negative (Negative); Clarity,Urine Clear (Clear); Color,Urine Colorless (Yellow); Glucose,Urine (UA) Normal (Normal); Ketones,Urine Negative (Negative); Leukocyte Esterase,Urine Negative (Negative); Nitrite,Urine Negative (Negative); Protein,Urine Negative (Neg-Trace); Specific Gravity,Urine > 1.030 (1.010-1.025); Urobilinogen,Urine Normal (Normal)
[2021-09-19] MEDS: *HR* Heparin 5,000 UNIT/ML VIAL SQ SCH (20:09)
[2021-09-20] MEDS: *HR* Heparin 5,000 UNIT/ML VIAL SQ SCH (06:52)
[2021-09-20 10:44] VITALS: BP 172/83; PULSE 62; TEMP 98; O2SAT 95
[2021-09-20 13:33] LABS: Chol/HDL Ratio 2.2 (0-4.9); Cholesterol 170 mg/dL (< 200); HDL Cholesterol 78 mg/dL (40-59); LDL Cholesterol,Calculated 77 mg/dL (< 100); Triglycerides 76 mg/dL (< 150)
[2021-09-20 13:54] LABS: Estimated Average Glucose 114 mg/dl; Hemoglobin A1C 5.6 %
== END 2021-09-20 14:02 | disposition home or self-care (01) ==
LOC: EMEROOARM 08:59 → 3BNU 08:59 → SUATTDRO 10:37 → 3BNU 11:22
PROVIDERS: ADMIT Internal Medicine; ATTEND Registered Nurse